=== PATIENT | male | born 1955 | race Caucasian/White ===

== ENCOUNTER 2018-09-11 08:17 | Emergency (ER) | payer BC ==
[2018-09-11 08:57] LABS: ADD MAN DIFF? NO
[2018-09-11 09:00] LABS: WHITE BLOOD COUNT 9.8 10^3/ul (4.8-10.8)
[2018-09-11 09:00] LABS: BASOPHIL # 0.1 10^3/ul (0.0-0.1); BASOPHILS % 0.8 % (0.0-2.0); EOSINOPHILS # 0.2 10^3/ul (0.0-0.5); EOSINOPHILS % 1.7 % (0.0-7.0); HEMOGLOBIN 16.1 g/dl (14.0-18.0); LYMPHOCYTES # 1.2 10^3/ul (0.8-2.9); MEAN CORPUSCULAR HEMOGLOBIN 29.8 pg (29.0-33.0); MEAN CORPUSCULAR HGB CONC 33.5 g/dl (32.0-37.0); MEAN CORPUSCULAR VOLUME 88.9 fl (82.0-101.0); MEAN PLATELET VOLUME 9.4 fl (7.4-10.4); MONOCYTE # 0.7 10^3/ul (0.3-0.9); MONOCYTES % 6.9 % (0.0-11.0); NEUTROPHIL # 7.7 10^3/ul (1.6-7.5); NEUTROPHILS % 78.3 % (39.0-77.0); PLATELET COUNT 355 10^3/UL (140-415); RED CELL DISTRIBUTION WIDTH 12.9 % (11.5-14.5)
[2018-09-11] MEDS: SOD CHLORIDE 0.9% 500 ML IV (09:00)
[2018-09-11] MEDS: KETOROLAC 15 MG INJ IV (09:00)
[2018-09-11 09:06] LABS: ADD UMIC YES; UR AMORPHOUS CRYSTAL FEW /HPF (NONE SEEN); UR ASCORBIC ACID 40 mg/dL (NEGATIVE); UR BILIRUBIN (Dip) NEGATIVE (NEGATIVE); UR BLOOD (Dip) NEGATIVE (NEGATIVE); UR CLARITY CLOUDY (CLEAR); UR COLOR YELLOW (YELLOW); UR GLUCOSE (Dip) NEGATIVE (NEGATIVE); UR KETONES (Dip) NEGATIVE (NEGATIVE); UR LEUKOCYTE ESTERASE (Dip) NEGATIVE Leu/ul (NEGATIVE); UR MUCUS FEW /HPF (NONE SEEN); UR NITRITE (Dip) NEGATIVE (NEGATIVE); UR RBC 1 /HPF (0-5); UR SPECIFIC GRAVITY (Dip) 1.023 (1.003-1.030); UR TOTAL PROTEIN (Dip) NEGATIVE (NEGATIVE); UR UROBILINOGEN (Dip) 1+ mg/dL (NEGATIVE); UR WBC 3 /HPF (0-5)
[2018-09-11 09:29] LABS: ALANINE AMINOTRANSFERASE 30 IU/L (13-69); ALBUMIN 4.2 g/dl (3.3-4.9); ALBUMIN/GLOBULIN RATIO 1.16; ALKALINE PHOSPHATASE 73 IU/L (42-121); ANION GAP 7 (5-13); ASPARTATE AMINO TRANSFERASE 31 IU/L (15-46); BILIRUBIN,INDIRECT 0.4 mg/dl (0-1.1); BILIRUBIN,TOTAL 0.4 mg/dl (0.2-1.3); BLOOD UREA NITROGEN 13 mg/dl (7-20); CALCIUM 9.2 mg/dl (8.4-10.2); CARBON DIOXIDE 36 mmol/L (21-31); CHLORIDE 101 mmol/L (97-110); CREATININE 0.83 mg/dl (0.61-1.24); Estimated GFR > 60 mL/min (>60); GLUCOSE 133 mg/dl (70-220); LIPASE 138 U/L (23-300); SODIUM 144 mmol/L (135-144); TOTAL PROTEIN 7.8 g/dl (6.1-8.1)
[2018-09-11 09:40] LABS: TROPONIN-I < 0.012 ng/ml (0.000-0.120)
[2018-09-11 09:48] LABS: POTASSIUM 3.9 mmol/L (3.5-5.1)
[2018-09-11] MEDS: IBUPROFEN 200 MG TAB PO (10:09)
== END 2018-09-11 10:32 | disposition home or self-care (01) ==
LOC: E/R 08:17
DX: R53.1 Weakness (principal); J06.9 Acute upper respiratory infection, unspecified; R40.2142 Coma scale, eyes open, spontaneous, at arrival to emergency department; R40.2362 Coma scale, best motor response, obeys commands, at arrival to emergency department; R40.2252 Coma scale, best verbal response, oriented, at arrival to emergency department
CPT/HCPCS: 36415; 71045; 80053; 81001; 83690; 84484; 85025; 93005; 96361; 96374; 99285-25

== ENCOUNTER 2018-09-12 04:31 | Emergency (ER) | payer BC ==
[2018-09-12] MEDS: SOD CHLORIDE 0.9% 1,000 ML IV (04:54)
[2018-09-12] MEDS: ONDANSETRON 4 MG INJ IV (04:54)
[2018-09-12] MEDS: PROCHLORPERAZINE 10 MG INJ IV (04:54)
[2018-09-12] MEDS: LORAZEPAM 2 MG INJ IV (05:23)
== END 2018-09-12 09:50 | disposition home or self-care (01) ==
LOC: E/R 04:31
DX: I16.0 Hypertensive urgency (principal); I10 Essential (primary) hypertension; R40.2142 Coma scale, eyes open, spontaneous, at arrival to emergency department; R40.2362 Coma scale, best motor response, obeys commands, at arrival to emergency department; R40.2252 Coma scale, best verbal response, oriented, at arrival to emergency department
CPT/HCPCS: 70450; 93005; 96374; 96375; 99285-25